=== PATIENT | male | born 1990 | race Caucasian/White ===

== ENCOUNTER 2023-06-25 16:35 | Emergency (ER) | payer SELFPAY ==
[2023-06-25 16:44] VITALS: BP 127/86
[2023-06-25 20:11] VITALS: BP 110/71
[2023-06-25 20:22] LABS: % Basophils 0.3 % (0-2); % Eosinophils 0.3 % (0-6); % Immature Granulocytes 0.3 % (0-0.5); % Monocytes 6.6 % (1.7-9.3); % Neutrophils 78.5 % (42.2-75.2); Absolute Lymphocytes 1.7 10^3/uL (1.2-3.4); Absolute Monocytes 0.8 10^3/uL (0.1-0.6); Absolute Neutrophils 9.4 10^3/uL (1.4-6.5); Hematocrit 40.5 % (39.0-52.0); Hemoglobin 14.3 g/dL (13.0-18.0); Mean Corp Hgb Conc. 35.3 g/dL (33.0-37.0); Mean Corpuscular Hgb 31.2 pg (27.0-31.0); Mean Corpuscular Volume 88.2 fL (80.0-94.0); Mean Platelet Volume 9.9 fL (7.4-10.4); Nucleated Red Blood Cells % 0 % (-); Platelet Count 261 10^3/uL (130-400); Red Blood Cell Count 4.59 10^6/uL (4.70-6.10); Red Cell Dist. Width 11.9 % (11.5-14.5)
[2023-06-25 20:43] LABS: Blood Urea Nitrogen 17 mg/dl (9-20); Calcium 9.4 mg/dl (8.4-10.2); Carbon Dioxide 25 mmol/L (22-30); Chloride 102 mmol/L (98-107); Glucose 91 mg/dl (70-99); Potassium 3.7 mmol/L (3.5-5.1); Sodium 136 mmol/L (135-145); eGFR > 60.00
[2023-06-25 20:47] LABS: Troponin I < 0.012 ng/ml
[2023-06-25 21:00] LABS: D-Dimer < 0.27 ug/mlFEU (0.00-0.50)
[2023-06-25 21:14] LABS: TSH Reflex To Free T4 1.13 uIU/ml (0.47-4.68)
--- NOTE | 2023-06-25 21:50 | ED.GENMED ---
History of Present Illness
General
Chief Complaint: Exposure-Chemical
Time Seen by Provider: 06/25/23 18:59
Travel History
Have you had any contact with someone who has COVID-19?: No
Do you have any symptoms of coronavirus? Fever > 100 degrees, chills, cough, shortness of breath, sore throat, loss of taste or smell, muscle aches, or headache?: No
History of Present Illness
History of Present Illness:
43-year-old male complaining of dizziness lightheadedness tingling that started at work hours ago today. Similar episode late last week with a nitrous gas exposure. However symptoms have resolved at that time. Currently feels moderately improved
in the ER.
Phy Exam
Physical Exam
Physical Exam:
GENERAL: Alert and oriented in no apparent distress
EYE: Orbits normal.
NECK: Supple, no significant adenopathy.
ENT: Pharynx without erythema
CARDIAC: Regular rate and rhythm without any obvious murmurs.
LUNGS: Clear breath sounds,normal
ABDOMEN: Soft, without focal tenderness or distention
NEUROLOGICAL: Alert and oriented , grossly non-focal
SKIN: Warm and dry, no rash or lesion, no discoloration, skin intact.
MUSCULOSKELETAL: No edema,no deformity.Good color
PSYCH: Normal and appropriate interaction.
Course
Orders/Labs/Results
Orders:
Orders
06/25/23 19:10
IV Insert/Care/Rem.- Treatment PRN
06/25/23 19:11
CR Chest - 2 Views Urgent
Comment:
Reason For Exam: sob chemival exposure
06/25/23 20:10
Basic Metabolic Panel Urgent
Complete Blood Count/With Diff Urgent
D-Dimer Urgent
TSH Reflex To Free T4 Urgent
Troponin I Urgent
06/25/23 21:59
EKG [Electrocardiogram (*1)] Urgent
Reason for Study: Shortness of Breath
EKG- Treatment ONCE
Abnormal Lab Results
06/25/23
20:10
WBC 12.0 H 10^3/uL
(4.8-10.8)
RBC 4.59 L 10^6/uL
(4.70-6.10)
MCH 31.2 H pg
(27.0-31.0)
Absolute Neuts (auto) 9.4 H 10^3/uL
(1.4-6.5)
Absolute Monos (auto) 0.8 H 10^3/uL
(0.1-0.6)
Neutrophils % 78.5 H %
(42.2-75.2)
Lymphocytes % 14.0 L %
(20.5-51.1)
06/25/23 20:10
06/25/23 20:10
Vital Signs
Initial and Last Documented VS:
Initial Vital Signs
Temp Pulse Resp BP Pulse Ox
97.9 F 99 16 127/86 100
06/25/23 16:44 06/25/23 16:44 06/25/23 16:44 06/25/23 16:44 06/25/23 16:44
Last Documented Vital Signs
Temp Pulse Resp BP Pulse Ox
97.9 F 81 14 110/71 98
06/25/23 16:44 06/25/23 20:54 06/25/23 20:54 06/25/23 20:11 06/25/23 20:54
*Radiology
Radiology exam reviewed: radiology read reviewed (Negative)
*Pulse Oximetry
Patient hypoxic: no
*Critical Care Note
Total Time (30-74mins, 75-104mins- exclusive of procedures): Not Applicable
Update Note
Update Note:
No serious explanation for patient's symptoms. He is remained clinically stable. Will Unremarkable. Minimal nonspecific leukocytosis. Unsure if this is related to his nitrogen exposure recently.
ED Attending Note
-
Portions of this chart may have been created with voice recognition software.� Occasional wrong word or��sound alike� substitutions may have occurred due to the inherent limitations of voice recognition software.
Discharge Plan
Departure
Patient Disposition: Home (Routine Discharge)
Date of Disposition: 06/25/23
Time of Disposition: 21:55
Patient with high blood pressure during this ER visit?: No
Discharge Problem:
Transient shortness of breath/paresthesi, Recent nitrogen gas exposure
Instructions: Shortness of Breath (Dyspnea) (DC)
Referrals:
NONE,* [Family Provider] -
Activity Restrictions/Additional Instructions:
Follow-up closely with your primary physician
Return sooner with progression or persistent symptoms including progression of shortness of breath tingling any chest pain fever or any other concerning symptoms
Interventions
Interventions:
ED- Fall Risk Assessment Last Done: 06/25/23 19:30
*ED COVID-19 Vaccine History Last Done: 06/25/23 16:44
ED-EENT Assessment Last Done: 06/25/23 19:30
ED- Pulmonary Assessment Last Done: 06/25/23 19:30
ED-Skin Assessment Last Done: 06/25/23 19:30
== END 2023-06-25 22:45 | disposition home or self-care (01) ==
LOC: EMR 16:35
PROVIDERS: EMERGENCY PHYSICIAN Emergency Medicine
DX: R06.02 Shortness of breath (principal); Z77.098 Contact with and (suspected) exposure to other hazardous, chiefly nonmedicinal, chemicals; Y99.0 Civilian activity done for income or pay
CPT/HCPCS: 99284; 71046; 80048; 84443; 84484; 85025; 85379